=== PATIENT | female | born 1945 | race African-American/Black ===

== ENCOUNTER 2018-05-28 15:09 | Emergency (ER) | payer OTHER ==
[~2018-05-28] VITALS: Ht 154.9 cm; Wt 51.3 kg
[2018-05-28 15:30] VITALS: BP_SYST 157
[2018-05-28 17:55] VITALS: BP_SYST 128
== END 2018-05-28 17:55 | disposition home or self-care (01) ==
LOC: SED 15:09
DX: S86.912A Strain of unspecified muscle(s) and tendon(s) at lower leg level, left leg, initial encounter (principal); J44.9 Chronic obstructive pulmonary disease, unspecified; E11.9 Type 2 diabetes mellitus without complications; K21.9 Gastro-esophageal reflux disease without esophagitis; I10 Essential (primary) hypertension; X58.XXXA Exposure to other specified factors, initial encounter; Y93.89 Activity, other specified; Y92.89 Other specified places as the place of occurrence of the external cause; Y99.8 Other external cause status
CPT/HCPCS: 93971; 99284